=== PATIENT | male | born 1985 | race Caucasian/White ===

== ENCOUNTER 2017-01-13 06:14 | Inpatient (IN) | payer SELFPAY ==
[~2017-01-13] VITALS: Wt 117.2 kg
[2017-01-13] MEDS ORDERED: morphine 4 MG/ML VIAL IV STA (06:40)
[2017-01-13] MEDS ORDERED: ONDANSETRON 4 MG INJ IV STA (06:40)
[2017-01-13] MEDS ORDERED: SOD CHLORIDE 0.9% 1,000 ML IV STA (06:40)
[2017-01-13 07:15] LABS: ADD UMIC YES; UR ASCORBIC ACID 40 mg/dL (NEGATIVE); UR BACTERIA FEW /HPF (NONE SEEN); UR BILIRUBIN (Dip) NEGATIVE (NEGATIVE); UR BLOOD (Dip) NEGATIVE (NEGATIVE); UR CLARITY CLEAR (CLEAR); UR COLOR YELLOW (YELLOW); UR GLUCOSE (Dip) NEGATIVE (NEGATIVE); UR KETONES (Dip) TRACE mg/dL (NEGATIVE); UR LEUKOCYTE ESTERASE (Dip) NEGATIVE Leu/ul (NEGATIVE); UR NITRITE (Dip) NEGATIVE (NEGATIVE); UR RBC 0 /HPF (0-5); UR SPECIFIC GRAVITY (Dip) 1.014 (1.003-1.030); UR TOTAL PROTEIN (Dip) 1+ mg/dl (NEGATIVE); UR UROBILINOGEN (Dip) NEGATIVE (NEGATIVE)
[2017-01-13 07:17] LABS: BASOPHILS % 0.2 % (0.0-2.0); EOSINOPHILS % 0.2 % (0.0-7.0); HEMATOCRIT 45.2 % (42.0-52.0); HEMOGLOBIN 15.8 g/dl (14.0-18.0); LYMPHOCYTES # 1.2 10^3/ul (0.8-2.9); LYMPHOCYTES % 6.5 % (15.0-51.0); MEAN CORPUSCULAR HEMOGLOBIN 30.9 pg (29.0-33.0); MEAN CORPUSCULAR VOLUME 88.3 fl (82.0-101.0); MEAN PLATELET VOLUME 10.8 fl (7.4-10.4); MONOCYTES % 5.3 % (0.0-11.0); NEUTROPHIL # 15.6 10^3/ul (1.6-7.5); NEUTROPHILS % 87.4 % (39.0-77.0); PLATELET COUNT 292 10^3/UL (140-415); RED BLOOD COUNT 5.12 10^6/ul (4.70-6.10); RED CELL DISTRIBUTION WIDTH 12.2 % (11.5-14.5); WHITE BLOOD COUNT 17.9 10^3/ul (4.8-10.8)
[2017-01-13 07:38] LABS: ALBUMIN 4.7 g/dl (3.3-4.9); ALBUMIN/GLOBULIN RATIO 1.3; BILIRUBIN,INDIRECT 0.6 mg/dl (0-1.1); BILIRUBIN,TOTAL 0.6 mg/dl (0.2-1.3); CALCIUM 10.2 mg/dl (8.4-10.2); CREATININE 0.86 mg/dl (0.61-1.24); POTASSIUM 4.2 mmol/L (3.5-5.1); TOTAL PROTEIN 8.3 g/dl (6.1-8.1)
--- NOTE | 2017-01-13 07:56 | RADRPT ---
PROCEDURE: CT of the abdomen and pelvis without contrast CLINICAL INDICATION: Right lower quadrant pain. TECHNIQUE: Spiral CT images through the abdomen and pelvis without the use of oral and without the use of intravenous contrast. The administered radiation dose is CTDI 21.04 and DLP 1330.55. One or more of the following dose reduction techniques were used: automated exposure control, adjustment o f the mA and/or kV according to patient size, or use of iterative reconstruction technique. DICOM im ages are available. COMPARISON: None FINDINGS: The study is limited by lack of intravenous contrast. Lower thorax: Slight dependent atalectasis of the lung bases is seen.. Liver: The liver is unremarkable in appearance. Biliary: The gallbladder is unremarkable.. No biliary ductal dilatation is seen. Pancreas: Unremarkable. No focal mass or inflammatory process. Spleen: Slightly enlarged, measuring 15.1 cm in length. Adrenal glands: Unremarkable in appearance. No focal nodule.. Genitourinary: No hydronephrosis or renal calculi are seen.. The bladder is unremarkable in appearan ce.. Gastrointestinal Tract: The appendix is significantly dilated, measuring 1.9 cm in diameter. There i s marked wall thickening and dense material or appendicoliths within. There is significant periappen diceal fat stranding and a small of fluid in the right paracolic gutter. No free air or drainable ab scess is seen. Trace pelvic free fluid. The bowel is otherwise unremarkable in appearance. Lymph nodes: No adenopathy is seen... Vascular structures: Minimal vascular calcification.. Reproductive Organs: Unremarkable in appearance.. Musculoskeletal: No bony abnormality is seen.. IMPRESSION: Severe appendicitis with probable micro perforation but no definite free air or abscess.. RPTAT: HLBE Physician Lenny Date Time Electronically viewed and signed by Physician Lenny on 01/13/2017 07:56 EZIO/
[2017-01-13] MEDS ORDERED: PIPER-TAZO 3.375 GM IV (PMX) 50 ML IV ONE (08:30)
[2017-01-13] MEDS ORDERED: metroNIDAZOLE 500 MG/NS (PMX) 100 ML IVPB ONE (09:30)
[2017-01-13] MEDS ORDERED: ACETAMINOPHEN 325 MG TAB PO PRN (09:30)
[2017-01-13] MEDS ORDERED: ONDANSETRON 4 MG INJ IV PRN ×2 (09:30→23:00)
--- NOTE | 2017-01-13 09:56 | ERD ---
ER Documentation Chief Complaint Chief Complaint rlq pain w n/v HPI This 31-year-old male presents with abdominal pain since yesterday. It is mid abdominal migrating to the right lower quadrant. Denies fever chills. He says some nonbilious nonbloody vomiting. Denies diarrhea or urinary complaints. ROS All systems reviewed and are negative except as per history of present illness. Allergies Allergies: Coded Allergies: No Known Allergy (Unverified , 01/13/17) PMhx/Soc Medical and Surgical Hx: pt denies Medical Hx, pt denies Surgical Hx History of Surgery: No Hx Alcohol Use: No Hx Substance Use: Yes (Marijuana) Smoking Status: Never smoker Physical Exam Vitals Vital Signs Date Time Temp Pulse Resp B/P Pulse Ox O2 Delivery O2 Flow Rate FiO2 01/13/17 08:27 97.9 63 19 136/74 100 Room Air 01/13/17 06:27 97.0 80 20 160/95 98 Physical Exam Const: [] Alert, uncomfortable due to pain. Head: Atraumatic Eyes: Normal Conjunctiva ENT: Normal External Ears, Nose and Mouth. Neck: Full range of motion..~ No meningismus. Resp: Clear to auscultation bilaterally Cardio: Regular rate and rhythm, no murmurs Abd: Soft, tenderness with focal rebound in the right lower quadrant. non distended. Normal bowel sounds Skin: No petechiae or rashes Back: No midline or flank tenderness Ext: No cyanosis, or edema Neur: Awake and alert Psych: Normal Mood and Affect Result Diagram: 01/13/17 0656 01/13/17 0656 Results 24 hrs Laboratory Tests Test 01/13/17 06:51 01/13/17 06:56 Urine Color YELLOW Urine Clarity CLEAR Urine pH 7.0 Urine Specific [place] 1.014 Urine Ketones TRACEmg/dL Urine Nitrite NEGATIVEmg/dL Urine Bilirubin NEGATIVEmg/dL Urine Urobilinogen NEGATIVEmg/dL Urine Leukocyte Esterase NEGATIVELeu/ul Urine Microscopic RBC 0/HPF Urine Microscopic WBC 1/HPF Urine Bacteria FEW/HPF Urine Hemoglobin NEGATIVEmg/dL Urine Glucose NEGATIVEmg/dL Urine Total Protein 1+mg/dl White Blood Count 17.910^3/ul Red Blood Count 5.1210^6/ul Hemoglobin 15.8g/dl Hematocrit 45.2% Mean Corpuscular Volume 88.3fl Mean Corpuscular Hemoglobin 30.9pg Mean Corpuscular Hemoglobin Concent 35.0g/dl Red Cell Distribution Width 12.2% Platelet Count 21843^3/UL Mean Platelet Volume 10.8fl Neutrophils % 87.4% Lymphocytes % 6.5% Monocytes % 5.3% Eosinophils % 0.2% Basophils % 0.2% Nucleated Red Blood Cells % 0.0/100WBC Neutrophils # 15.610^3/ul Lymphocytes # 1.210^3/ul Monocytes # 1.010^3/ul Eosinophils # 0.010^3/ul Basophils # 0.010^3/ul Nucleated Red Blood Cells # 0.010^3/ul Sodium Level 141mmol/L Potassium Level 4.2mmol/L Chloride Level 101mmol/L Carbon Dioxide Level 26mmol/L Anion Gap 18 Blood Urea Nitrogen 15mg/dl Creatinine 0.86mg/dl Glucose Level 132mg/dl Calcium Level 10.2mg/dl Total Bilirubin 0.6mg/dl Direct Bilirubin 0.00mg/dl Indirect Bilirubin 0.6mg/dl Aspartate Amino Transf (AST/SGOT) 19IU/L Alanine Aminotransferase (ALT/SGPT) 35IU/L Alkaline Phosphatase 68IU/L Total Protein 8.3g/dl Albumin 4.7g/dl Globulin 3.60g/dl Albumin/Globulin Ratio 1.30 Lipase 48U/L Current Medications Medications (Trade) Dose Ordered Sig/Shlomo Route PRN Reason Start Time Stop Time Status Last Admin Dose Admin Sodium Chloride (NS) 1,000 ml @ 1,000 mls/hr Q1H STAT IV 01/13/17 06:40 01/13/17 07:39 DC 01/13/17 06:58 Morphine Sulfate (morphine) 4 mg ONCE STAT IV 01/13/17 06:40 01/13/17 06:41 DC 01/13/17 06:58 Ondansetron HCl 4 mg 4 mg ONCE STAT IV 01/13/17 06:40 01/13/17 06:41 DC 01/13/17 06:58 Piperacillin Sod/ Tazobactam Sod (Zosyn 3.375gm/ 50 ml (Pmx)) 50 ml @ 100 mls/hr ONCE ONCE IV 01/13/17 08:30 01/13/17 08:59 DC 01/13/17 08:17 Ondansetron HCl (Zofran Inj) 4 mg BRIDGE ORDER PRN IV NAUSEA AND/OR VOMITING 01/13/17 09:30 12 09:29 Acetaminophen 650 mg 650 mg ER BRIDGE PRN PO MILD PAIN/FEVER 01/13/17 09:30 12 09:29 Metronidazole 100 ml @ 100 mls/hr ONCE ONCE IVPB 01/13/17 09:30 01/13/17 10:29 DC 01/13/17 09:48 Piperacillin Sod/ Tazobactam Sod 50 ml @ 100 mls/hr Q6H IVPB 01/13/17 15:00 Sodium Chloride (NS) 1,000 ml @ 100 mls/hr Q10H IV 01/13/17 10:24 IV Flush (NS 3 ml) 3 ml PER PROTOCOL IV 01/13/17 10:30 Acetaminophen (Tylenol Supp) 650 mg Q6H PRN [place] PAIN LEVEL 1-3 OR FEVER 01/13/17 10:30 Morphine Sulfate (morphine) 2 mg Q4H PRN IV SEVERE PAIN LEVEL 7-10 01/13/17 10:30 Famotidine (Pepcid Iv) 20 mg Q12 IV 01/13/17 21:00 Procedures/MDM Patient shows signs and symptoms concerning for acute appendicitis. IV was obtained. Patient was given 1 L normal saline IV, morphine 4 mg IV and Zofran 4 mg's IV. CBC shows white blood cell count of 17.9 with left shift. CMP and lipase are normal. Urine is negative for blood, leukocytes, hemoglobin. CT abdomen pelvis noncontrast shows 1.9 cm appendix with stranding and fecalith. Concern is for microperforation although no obvious abscess noted. Patient was given Zosyn 3.37 g IV and Flagyl 500 mg IV. Call was placed to Dr. paz, general surgery who will graciously consult, patient was admitted n.p.o. with IV antibiotics. Patient stable without evidence of SIRS criteria throughout the ED course. Chest X-ray 1V Interpreted by me: Soft Tissue: No acute abnormalities Bones: No acute abnormalities Mediastinum/Cardiac Silhouette/Lungs: [No acute abnormalities]. Impression- normal 1 view chest x-ray Departure Diagnosis: Primary Impression: Appendicitis Appendicitis type: acute appendicitis Acute appendicitis type: with localized peritonitis Qualified Code: K35.3 - Acute appendicitis with localized peritonitis Condition: Stable ROMANA MONTES MD Jan 13, 2017 09:56
[2017-01-13] MEDS ORDERED: ACETAMINOPHEN 650 MG SUPP PR PRN (10:30)
[2017-01-13] MEDS ORDERED: NACL 0.9% 3 ML SYG IV SCH (10:30)
--- NOTE | 2017-01-13 10:46 | RADRPT ---
PROCEDURE: XR Chest. CLINICAL INDICATION: chest pain TECHNIQUE: Single frontal view of the chest was obtained COMPARISON: None FINDINGS: The heart and mediastinum are within normal limits. The lungs are clear. There is no pleural effusion or pneumothorax. RPTAT: AA IMPRESSION: No acute disease. .Francisco Javier Denney MD, Date Time Electronically viewed and signed by .Francisco Javier Denney MD, on 01/13/2017 10:46 .S/
--- NOTE | 2017-01-13 11:46 | CONS ---
Date/Time of Note Date/Time of Note DATE: 01/13/17 TIME: 11:33 Assessment/Plan Assessment/Plan Chief Complaint/Hosp Course 1. Appendicitis with appendicolith: CT abdomen: significantly dilated appendix with marked wall thickening and dense material or appendicoliths within and a probable microperforation -npo -ivf -abx -lap appendectomy -pain management 2. Abdominal pain: 2/2 #1 -as above 3. Leukocytosis: 2/2 #1 -as above 4. Obesity: bmi 32 -diet and exercise optimization -encourage weight loss 5. Hypertension history -monitor for need for medical management-bp optimization -weight management Thank you. Patient seen and examined in collaboration with Dr. Ray Daly. Problems: Consultation Date/Type/Reason Admit Date/Time Date of Consultation: Jan 13, 2017 Type of Consultation: surgical Reason for Consultation Appendicitis Referring Provider: ROMANA MONTES MD Hx of Present Illness Guillermo Oakley is a 31-year-old man who presents with complaints of abdominal pain since yesterday. Pain is described as sharp and constant, is mid abdominal migrating to the right lower quadrant. He denies and precipitating factors. He denies fevers but reports chills. Associated symptoms include nonbilious nonbloody vomiting. Denies diarrhea, dysuria, melena, hematochezia, change in bowel or bladder habits. CT abdomen shows significantly dilated appendix with marked wall thickening and dense material or appendicoliths within and a probable microperforation. General surgery was asked to evaluate. Constitutional: chills, No febrile Eyes: No visual change ENT: No congestion Respiratory: other (nasal congestion), No cough, No shortness of breath Cardiovascular: No chest pain, No lightheadedness, No palpitations Gastrointestinal: other (as above) Genitourinary: No dysuria, No flank pain Musculoskeletal: No back pain, No neck pain, No restricted range of motion Skin: No bruising, No erythema, No rash Neurologic: No confusion, No focal-weakness, No syncope Psychological: anxiety Past Medical History hypertension (controlled by diet and exercise) Obesity: bmi 32 Past Surgical History Past Surgical Hx: no surgical history Family History Significant Family History: no pertinent family hx Social History Smoking Status: Never smoker Exam/Review of Systems Vital Signs Vitals Vital Signs Date Time Temp Pulse Resp B/P Pulse Ox O2 Delivery O2 Flow Rate FiO2 01/13/17 08:27 97.9 63 19 136/74 100 Room Air Exam Constitutional: alert, oriented Psych: anxiety Head: atraumatic, normocephalic Eyes: nl lids, nl sclera ENMT: mucosa pink and moist, nl nasal mucosa & septum Neck: non-tender, supple Respiratory: clear to auscultation, normal air movement Cardiovascular: nl pulses, regular rate and rhythm Gastrointestinal: distended (min), soft, tender (rlq, mcburney's point, no rebound tenderness) Genitourinary - Male: nl penis, No CVA tenderness Musculoskeletal: nl extremities to inspection Neurological: nl mental status, nl speech, nl strength Skin: nl turgor, rash or lesions Results Result Diagram: 01/13/1765501/13/1756 Results 24 hrs Laboratory Tests Test 01/13/17 06:51 01/13/17 06:56 Urine Color YELLOW Urine Clarity CLEAR Urine pH 7.0 Urine Specific [place] 1.014 Urine Ketones TRACE A Urine Nitrite NEGATIVE Urine Bilirubin NEGATIVE Urine Urobilinogen NEGATIVE Urine Leukocyte Esterase NEGATIVE Urine Microscopic RBC 0 Urine Microscopic WBC 1 Urine Bacteria FEW A Urine Hemoglobin NEGATIVE Urine Glucose NEGATIVE Urine Total Protein 1+ H White Blood Count 17.9 H Red Blood Count 5.12 Hemoglobin 15.8 Hematocrit 45.2 Mean Corpuscular Volume 88.3 Mean Corpuscular Hemoglobin 30.9 Mean Corpuscular Hemoglobin Concent 35.0 Red Cell Distribution Width 12.2 Platelet Count 292 Mean Platelet Volume 10.8 H Neutrophils % 87.4 H Lymphocytes % 6.5 L Monocytes % 5.3 Eosinophils % 0.2 Basophils % 0.2 Nucleated Red Blood Cells % 0.0 Neutrophils # 15.6 H Lymphocytes # 1.2 Monocytes # 1.0 H Eosinophils # 0.0 Basophils # 0.0 Nucleated Red Blood Cells # 0.0 Sodium Level 141 Potassium Level 4.2 Chloride Level 101 Carbon Dioxide Level 26 Anion Gap 18 H Blood Urea Nitrogen 15 Creatinine 0.86 Glucose Level 132 Calcium Level 10.2 Total Bilirubin 0.6 Direct Bilirubin 0.00 Indirect Bilirubin 0.6 Aspartate Amino Transf (AST/SGOT) 19 Alanine Aminotransferase (ALT/SGPT) 35 Alkaline Phosphatase 68 Total Protein 8.3 H Albumin 4.7 Globulin 3.60 H Albumin/Globulin Ratio 1.30 Lipase 48 Medications Medications Current Medications Piperacillin Sod/ Tazobactam Sod 50 ml @ 100 mls/hr Q6H IVPB ; Start 01/13/17 at 15:00 Sodium Chloride (NS) 1,000 ml @ 100 mls/hr Q10H IV ; Start 01/13/17 at 10:24 Acetaminophen (Tylenol Supp) 650 mg Q6H PRN [place] PAIN LEVEL 1-3 OR FEVER; Start 01/13/17 at 10:30 Morphine Sulfate (morphine) 2 mg Q4H PRN IV SEVERE PAIN LEVEL 7-10; Start 01/13 at 10:30 Famotidine (Pepcid Iv) 20 mg Q12 IV ; Start 01/13/17 at 21:00 SAHIL GUIDRY NP Jan 13, 2017 11:43
--- NOTE | 2017-01-13 12:17 | HP ---
Date/Time of Note Date/Time of Note DATE: 01/13/17 TIME: 12:17 Assessment/Plan VTE Prophylaxis VTE Prophylaxis Intervention: SCD's Assessment/Plan Chief Complaint/Hosp Course 31-year-old male presenting to the emergency room with sudden onset of right- sided abdominal pain associated with nausea, who also found to have acute appendicitis. 1. Acute appendicitis with possible microperforation. Status: Acute -Admit as inpatient. Surgical consult with Dr. Daly requested. -IV fluids, broad-spectrum IV antibiotics, pain medications and PRN antiemetics. 2. Leukocytosis, secondary to #1. Status: Acute -Treatment as above. 3. Hypertension. Currently stable. Status: Chronic -This is being managed with diet and exercise as outpatient. Will closely monitor for medication management if indicated. - Please not that patient currently in pain which is also causing mild variation in his blood pressure. 4. Obesity. -Weight reduction advised. -We will also obtain an A1c and lipid panel. DVT prophylaxis: SCDs PUD prophylaxis: Pepcid. Rest of the management depend on hospital course. Approximately 60 minutes was spent on this history and physical. Patient was seen in collaboration with . Problems: HPI/ROS Admit Date/Time Admit Date/Time Hx of Present Illness This is a 31-year-old obese male with no significant past medical history other than recently diagnosed hypertension managed with diet and exercise, presented to the emergency room for evaluation of sudden onset of right-sided abdominal pain associated with nausea and subjective fevers. Initial workup showed acute appendicitis with possible microperforation. Patient also had elevated WBC 17, 900 on arrival. He also had a blood pressure of 160/95. Patient did not have any fevers in the emergency room. Patient was treated with IV Zosyn, IV fluids and Flagyl in the emergency room and a surgery consult was requested and admitted. ROS Patient continued to have right-sided abdominal pain. Currently patient denies any nausea, vomiting, hematochezia, hematemesis, melena, chest pain, palpitation , shortness of breath, numbness, tingling, dizziness, loss of consciousness or other constitutional symptoms. He also denied fever or chills. Eyes: No visual change ENT: No congestion Respiratory: other Cardiovascular: No chest pain, No lightheadedness, No palpitations Gastrointestinal: other Genitourinary: No dysuria, No flank pain Musculoskeletal: No back pain, No neck pain, No restricted range of motion Skin: No bruising, No erythema, No rash Neurologic: No confusion, No focal-weakness, No syncope Psychological: anxiety PMH/Family/Social Past Medical History See HPI Past Surgical History See HPI Past Surgical Hx: no surgical history Social History Patient denied history of alcohol or nicotine use. Patient smokes marijuana occasionally. Smoking Status: Never smoker Exam/Review of Systems Vital Signs Vitals Vital Signs Date Time Temp Pulse Resp B/P Pulse Ox O2 Delivery O2 Flow Rate FiO2 01/13/17 11:58 98.3 68 18 127/77 98 01/13/17 08:27 Room Air Exam Exam General: Well developed, obese male, not in any acute distress . HEENT: Normocephalic, Atraumatic, No laceration or hematoma; Eyes: PEERL, Conjunctiva clear, Anicteric sclera Neck: Supple without any lymphadenopathy, nontender, no JVD, no carotid bruits, trachea midline, no thyromegaly Cardiac: S1, S2 auscultated, regular rhythm and rate, no mumurs or gallop Pulmonary: Normal respiratory effort. Chest clear to auscultation bilaterally, no adventitious breath sounds GI: Tenderness to right lower quadrant. Abdomen normal to inspection. Soft, non - distended, no masses, no rebound tenderness or guarding. Bowel sounds active on all four quadrants Genitourinary: Deferred Extremities: No cyanosis, clubbing, or edema. Pulses [2+] bilaterally. Full ROM on all four extremities. No focal weakness appreciated. Neurologic: Alert to person, place, time, and situation. Affect appropriate, intact sensation. Skin: Clean,dry, and intact. No ecchymosis, no rashes, or lesions Labs Result Diagram: 01/13/1756 01/13/17655 Medications Medications Current Medications Piperacillin Sod/ Tazobactam Sod 50 ml @ 100 mls/hr Q6H IVPB ; Start 01/13/17 at 15:00 Sodium Chloride (NS) 1,000 ml @ 100 mls/hr Q10H IV ; Start 01/13/17 at 10:24 Acetaminophen (Tylenol Supp) 650 mg Q6H PRN [place] PAIN LEVEL 1-3 OR FEVER; Start 01/13/17 at 10:30 Morphine Sulfate (morphine) 2 mg Q4H PRN IV SEVERE PAIN LEVEL 7-10; Start 01/13 at 10:30 Famotidine (Pepcid Iv) 20 mg Q12 IV ; Start 01/13/17 at 21:00 TAMIR COPPOLA NP Jan 13, 2017 12:17
[2017-01-13] MEDS: SOD CHLORIDE 0.9% 1,000 ML IV SCH ×2 (12:32→17:05)
[2017-01-13 13:45] LABS: INR 0.87; PROTIME 11.9 Sec (11.9-14.9); PT RATIO 0.9
[2017-01-13 13:46] LABS: PARTIAL THROMBOPLASTIN TIME 31.8 Sec (25.0-35.0)
[2017-01-13 15:30] VITALS: TEMP 98.9
[2017-01-13] MEDS: PIPER-TAZO 3.375 GM IV (PMX) 50 ML IVPB SCH ×2 (15:38→21:57)
[2017-01-13 16:39] VITALS: BP 139/79; PULSE 73; RESP 16
[2017-01-13 20:00] VITALS: BP 142/76; RESP 20
[2017-01-13] MEDS: FAMOTIDINE 20 MG INJ IV SCH (21:00)
[2017-01-13] MEDS ORDERED: PROPOFOL 40 ML ONE (22:51)
[2017-01-13] MEDS ORDERED: MIDAZOLAM 1 MG/ML 2 ML INJ ONE (22:51)
[2017-01-13] MEDS ORDERED: ROPIVACAINE 0.5 % 30 ML VIAL ONE (22:51)
[2017-01-13] MEDS ORDERED: ROCURONIUM 50 MG INJ ONE (22:51)
[2017-01-13] MEDS ORDERED: BUPIVACAINE 0.25% (MPF) 30 ML INJ ONE (22:56)
[2017-01-13] MEDS ORDERED: LIDOCAINE 1%/EPI 30 ML INJ ONE (22:56)
[2017-01-13] MEDS ORDERED: LABETALOL HCL 20MG INJ IV PRN (23:00)
[2017-01-13] MEDS ORDERED: MEPERIDINE 25 MG INJ IV PRN (23:00)
[2017-01-13] MEDS ORDERED: FENTAnyl 50 MCG/ML VIAL IV PRN ×3 (23:00)
[2017-01-13] MEDS ORDERED: DIPHENHYDRAMINE 50 MG INJ IV PRN (23:00)
[2017-01-13] MEDS ORDERED: METOCLOPRAMIDE 10 MG INJ IV PRN (23:00)
[2017-01-13] MEDS ORDERED: hydrALAzine 20 MG INJ IV PRN (23:00)
[2017-01-13] MEDS ORDERED: EPHEDrine SULFATE 50 MG/5 ML SYG IV PRN (23:00)
[2017-01-13] MEDS ORDERED: HYDROmorphONE (0.2 MG/ML) 10ML SYG IV PRN ×3 (23:00)
[2017-01-14] VITALS (19 sets, daily range): BP systolic 123–171; BP diastolic 62–87; PULSE 69–78; RESP 15–20
[2017-01-14] MEDS ORDERED: LIDOCAINE 1%/EPI 30 ML INJ INJ ONE (00:11)
[2017-01-14] MEDS ORDERED: BUPIVACAINE 0.25% (MPF) 30 ML INJ INJ ONE (00:11)
[2017-01-14] MEDS ORDERED: LABETALOL HCL 20MG INJ ONE ×2 (00:16→00:23)
[2017-01-14] MEDS ORDERED: FENTAnyl 50 MCG/ML VIAL ONE ×2 (00:16→01:17)
[2017-01-14] MEDS ORDERED: ONDANSETRON 4 MG INJ ONE ×2 (00:26→14:49)
[2017-01-14] MEDS ORDERED: DEXAMETHASONE 4 MG/ML 1 ML INJ ONE (00:26)
[2017-01-14] MEDS ORDERED: METOCLOPRAMIDE 10 MG INJ ONE (00:26)
[2017-01-14] MEDS ORDERED: KETOROLAC 30 MG INJ ONE (00:26)
[2017-01-14] MEDS ORDERED: SUGAMMADEX SODIUM 200 MG/2 ML VIAL IV ONE (00:26)
[2017-01-14] MEDS ORDERED: hydrALAzine 20 MG INJ ONE (00:30)
[2017-01-14] MEDS ORDERED: THROMBIN 5000 UNIT VIAL ONE (00:33)
--- NOTE | 2017-01-14 01:18 | OPR ---
Date/Time of Note Date/Time of Note DATE: 01/14/17 TIME: 01:15 Operative Report Free Text/Dictation Preoperative Diagnosis 1. Acute appendicitis with perforation Postoperative Diagnosis 1. Acute appendicitis with contained retrocecal microperforation Operation Performed 1. Laparoscopic appendectomy 2. [place] anesthetic [place], [address] 3. Laparoscopic guided bilateral transversus abdominis plane block Surgeon: ROBLES PLUMMER MD Leacher: None Anesthesia: general (Plus local plus regional) Anesthesiologist: MD Kati Estimated Blood Loss: 30 ml's Specimens: Appendix Tubes/Drains/prosthetics: None Complications: None Pt Condition Post Procedure: stable Disposition: PACU Indications: Per consult note. Risks include but are not limited to bleeding, infection, abscess, seroma, leak , damage to intestines or any intra-abdominal/intrapelvic structures, hernia formation, chronic pain, need for re-operations or further surgeries, CA, stroke , PE, DVT, pneumonia, organ failures, or even . Procedure Note: Patient was brought into the operating room, placed supine on the operating table, SCDs were placed, left arm was tucked, all pressure points were well- padded, preoperative antibiotics administered, and after induction of anesthesia , he was prepped and draped in usual sterile fashion, and timeout was performed. Incision was made supraumbilically and the Veress needle was safely place into the abdomen. After negative sip test, abdomen was insufflated to 15 mmHg with CO2. At this point Veress was removed and the 5 mm blunt trocar was placed into the abdomen. Laparoscopy was performed and no injuries were identified using a 5 mm 30 scope. Under direct visualization another 5 mm port was placed and left lower quadrant and 12 mm port and suprapubic region avoiding the bladder. All incision sites were injected with quarter percent Marcaine with 1% lidocaine with epi. Bilateral transversus abdominis plane block was performed under laparoscopic visualization to aid with pain control intra-and postoperatively. Patient was placed in Trendelenburg and right side up. The appendix was found to be inflamed, retrocecal, with contained microperforation. The base was transected using Endo PHANI white load automatic 35 mm stapler just on the cecum. The xena were fired fully. The mesoappendix was transected with other white loads x2 stapler. Hemostasis was fully obtained. The appendix was placed in an Endo Catch bag and removed through the suprapubic port site. That fascia was closed with Endo Close and 0 Vicryl in a [id number] manner avoiding the bladder. Ports and CO2 were removed under direct visualization, wounds were fully irrigated, and skin was closed in subcuticular fashion using 4-0 Monocryl. Dermabond was applied. All counts were correct and the end of the operation 2. Patient was extubated and transferred to recovery room in stable condition. ROBLES PLUMMER MD Jan 14, 2017 01:18
[2017-01-14] MEDS: morphine 2 MG INJ IV PRN ×3 (02:19→18:51)
[2017-01-14] MEDS: PIPER-TAZO 3.375 GM IV (PMX) 50 ML IVPB SCH ×4 (03:20→21:40)
[2017-01-14] MEDS ORDERED: morphine 4 MG/ML VIAL IV ONE (04:09)
[2017-01-14] MEDS ORDERED: morphine 4 MG/ML VIAL IV PRN (04:30)
[2017-01-14 05:19] LABS: BASOPHILS % 0.1 % (0.0-2.0); HEMATOCRIT 41.1 % (42.0-52.0); HEMOGLOBIN 14.2 g/dl (14.0-18.0); LYMPHOCYTES # 0.8 10^3/ul (0.8-2.9); LYMPHOCYTES % 5.2 % (15.0-51.0); MEAN CORPUSCULAR HEMOGLOBIN 30.9 pg (29.0-33.0); MEAN CORPUSCULAR HGB CONC 34.5 g/dl (32.0-37.0); MEAN CORPUSCULAR VOLUME 89.5 fl (82.0-101.0); MEAN PLATELET VOLUME 10.8 fl (7.4-10.4); MONOCYTE # 0.4 10^3/ul (0.3-0.9); MONOCYTES % 2.9 % (0.0-11.0); NEUTROPHIL # 13.9 10^3/ul (1.6-7.5); NEUTROPHILS % 91.5 % (39.0-77.0); PLATELET COUNT 291 10^3/UL (140-415); RED BLOOD COUNT 4.59 10^6/ul (4.70-6.10); RED CELL DISTRIBUTION WIDTH 12.1 % (11.5-14.5); WHITE BLOOD COUNT 15.2 10^3/ul (4.8-10.8)
[2017-01-14 06:21] LABS: ALBUMIN 3.9 g/dl (3.3-4.9); ALBUMIN/GLOBULIN RATIO 1.25; BILIRUBIN,INDIRECT 0.6 mg/dl (0-1.1); BILIRUBIN,TOTAL 0.6 mg/dl (0.2-1.3); CALCIUM 9.2 mg/dl (8.4-10.2); CREATININE 0.8 mg/dl (0.61-1.24); MAGNESIUM 1.7 mg/dl (1.7-2.5); PHOSPHORUS 3.5 mg/dl (2.5-4.9); POTASSIUM 3.9 mmol/L (3.5-5.1)
[2017-01-14] MEDS: SOD CHLORIDE 0.9% 1,000 ML IV SCH ×3 (06:24→18:45)
[2017-01-14 06:45] LABS: THYROID STIMULATING HORMONE 1.35 MIU/L (0.465-4.680)
[2017-01-14] MEDS ORDERED: SUCCINYLCHOLINE CHLORIDE 100 MG/5 ML SYG IV ONE (07:00)
[2017-01-14] MEDS: FAMOTIDINE 20 MG INJ IV SCH ×2 (08:19→21:40)
--- NOTE | 2017-01-14 10:51 | PN ---
Date/Time of Note Date/Time of Note DATE: 01/14/17 TIME: 10:43 Assessment/Plan VTE Prophylaxis VTE Prophylaxis Intervention: SCD's Lines/Catheters IV C[facility]ter Type (from [facility]): Peripheral IV Urinary Cath still in place: No Assessment/Plan Chief Complaint/Hosp Course 31-year-old male presenting to the emergency room with sudden onset of right- sided abdominal pain associated with nausea, who also found to have acute appendicitis. 1. Acute appendicitis with perforation. Status post laparoscopic appendectomy 01/13/2017 Status: Acute -Continue broad-spectrum IV antibiotics, pain medications and PRN antiemetics. -Diet per surgery. -Encourage ambulation and incentive spirometry. 2. Leukocytosis, secondary to #1. Improving. Status: Acute -Treatment as above. 3. Hypertension. Currently stable. Status: Chronic -This is being managed with diet and exercise as outpatient. Will closely monitor for medication management if indicated. 4. Obesity. -Weight reduction advised. DVT prophylaxis: SCDs PUD prophylaxis: Pepcid. Patient was seen in collaboration with . Problems: Subjective 24 Hr Interval Summary Free Text/Dictation status post laparoscopic appendectomy. Having pain now. Remains afebrile. Exam/Review of Systems Vital Signs Vitals Vital Signs Date Time Temp Pulse Resp B/P Pulse Ox O2 Delivery O2 Flow Rate FiO2 01/14/17 07:47 97.8 65 20 154/85 99 01/14/17 04:00 Room Air Intake and Output 01/13/17 01/13/17 01/14/17 14:59 22:59 06:59 Intake Total 200 ml Output Total 30 ml Balance 170 ml Exam General: Well developed, obese male, not in any acute distress . HEENT: Normocephalic, Atraumatic, No laceration or hematoma; Eyes: PEERL, Conjunctiva clear, Anicteric sclera Neck: Supple without any lymphadenopathy, nontender, no JVD, no carotid bruits, trachea midline, no thyromegaly Cardiac: S1, S2 auscultated, regular rhythm and rate, no mumurs or gallop Pulmonary: Normal respiratory effort. Chest clear to auscultation bilaterally, no adventitious breath sounds GI: Tenderness to abdominal surgical incision area. Abdomen normal to inspection. Soft, non- distended, no masses, no rebound tenderness or guarding. Bowel sounds active on all four quadrants Genitourinary: Deferred Extremities: No cyanosis, clubbing, or edema. Pulses [2+] bilaterally. Full ROM on all four extremities. No focal weakness appreciated. Neurologic: Alert to person, place, time, and situation. Affect appropriate, intact sensation. Skin: Clean,dry, and intact. No ecchymosis, no rashes, or lesions Results Result Diagram: 01/14/17 0442 01/14/17 0442 Results 24 hrs Laboratory Tests Test 01/13/17 10:56 01/14/17 04:42 Prothrombin Time 11.9 Prothrombin Time Ratio 0.9 INR International Normalized Ratio 0.87 Activated Partial Thromboplast Time 31.8 White Blood Count 15.2 H Red Blood Count 4.59 L Hemoglobin 14.2 Hematocrit 41.1 L Mean Corpuscular Volume 89.5 Mean Corpuscular Hemoglobin 30.9 Mean Corpuscular Hemoglobin Concent 34.5 Red Cell Distribution Width 12.1 Platelet Count 291 Mean Platelet Volume 10.8 H Neutrophils % 91.5 H Lymphocytes % 5.2 L Monocytes % 2.9 Eosinophils % 0.0 Basophils % 0.1 Nucleated Red Blood Cells % 0.0 Neutrophils # 13.9 H Lymphocytes # 0.8 Monocytes # 0.4 Eosinophils # 0.0 Basophils # 0.0 Nucleated Red Blood Cells # 0.0 Sodium Level 138 Potassium Level 3.9 Chloride Level 103 Carbon Dioxide Level 25 Anion Gap 14 Blood Urea Nitrogen 12 Creatinine 0.80 Glucose Level 145 Hemoglobin A1c 5.1 Calcium Level 9.2 Phosphorus Level 3.5 Magnesium Level 1.7 Total Bilirubin 0.6 Direct Bilirubin 0.00 Indirect Bilirubin 0.6 Aspartate Amino Transf (AST/SGOT) 18 Alanine Aminotransferase (ALT/SGPT) 34 Alkaline Phosphatase 55 Total Protein 7.0 # Albumin 3.9 Globulin 3.10 Albumin/Globulin Ratio 1.25 Thyroid Stimulating Hormone (TSH) 1.350 Medications Medications Current Medications Piperacillin Sod/ Tazobactam Sod 50 ml @ 100 mls/hr Q6H IVPB Last administered on 01/14/17 08:19; Admin Dose 100 MLS/HR; Start 01/13/17 at 15:00 Sodium Chloride (NS) 1,000 ml @ 100 mls/hr Q10H IV Last administered on 07:32; Admin Dose 100 MLS/HR; Start 01/13/17 at 10:24 Acetaminophen (Tylenol Supp) 650 mg Q6H PRN CA PAIN LEVEL 1-3 OR FEVER; Start 01/13/17 at 10:30 Morphine Sulfate (morphine) 2 mg Q4H PRN IV SEVERE PAIN LEVEL 7-10 Last administered on 01/14/17 08:19; Admin Dose 2 MG; Start 01/13/17 at 10:30 Famotidine (Pepcid Iv) 20 mg Q12 IV Last administered on 01/14/17 08:19; Admin Dose 20 MG; Start 01/13/17 at 21:00 Morphine Sulfate (morphine) 4 mg Q4H PRN IV PAIN; Start 01/14/17 at 04:30 TAMIR COPPOLA NP Jan 14, 2017 10:51
--- NOTE | 2017-01-14 15:25 | PN ---
Date/Time of Note Date/Time of Note DATE: 01/14/17 TIME: 15:24 Assessment/Plan Lines/Catheters IV Catheter Type (from [facility]): Peripheral IV Montague in Place (from [facility]): No Assessment/Plan Chief Complaint/Hosp Course 1. Acute appendicitis with contained retrocecal microperforation: -IS -ambulate -ice pack to abdominal wall -diet as tolerated -cont abx 2. Abdominal pain: 2/2 #1 improved -as above 3. Leukocytosis: 2/2 #1improving -as above 4. Obesity: bmi 32 -diet and exercise optimization -encourage weight loss 5. Hypertension history -monitor for need for medical management-bp optimization -weight management Thank you. Patient seen and examined in collaboration with Dr. Ray Daly. Problems: Subjective 24 Hr Interval Summary Some nausea with 1 time vomiting, no improved. Leukocytosis improving. Ambulating. No fevers, chills, sob, congested cough, cp, palpitations, badillo, dizziness, n/v/d/dysuria. Exam/Review of Systems Vital Signs Vitals Vital Signs Date Time Temp Pulse Resp B/P Pulse Ox O2 Delivery O2 Flow Rate FiO2 01/14/17 14:47 98.1 95 20 97 01/14/17 04:00 Room Air Intake and Output 01/13/17 01/13/17 01/14/17 15:00 23:00 07:00 Intake Total 200 ml Output Total 30 ml Balance 170 ml Exam Free Text/Dictation Constitutional: alert, oriented Psych: anxiety Head: atraumatic, normocephalic Eyes: nl lids, nl sclera ENMT: mucosa pink and moist, nl nasal mucosa & septum Neck: non-tender, supple Respiratory: clear to auscultation, normal air movement Cardiovascular: nl pulses, regular rate and rhythm Gastrointestinal: distended (min), soft, min tender darnell-incisional, incision sites dry Genitourinary - Male: nl penis, No CVA tenderness Musculoskeletal: nl extremities to inspection Neurological: nl mental status, nl speech, nl strength Skin: nl turgor, rash or lesions Results Result Diagram: 01/14/17 0442 01/14/17 044 SAHIL GUIDRY NP Jan 14, 2017 15:24 SAHIL GUIDRY NP Jan 14, 2017 15:24
[2017-01-14] MEDS: HYDROCODONE/APAP (5/325) TAB PO PRN (19:46)
[2017-01-14] MEDS: KETOROLAC 15 MG INJ IV PRN (19:46)
[2017-01-15 02:50] VITALS: BP 156/99; RESP 18
[2017-01-15] MEDS: KETOROLAC 15 MG INJ IV PRN (02:51)
[2017-01-15] MEDS: HYDROCODONE/APAP (5/325) TAB PO PRN ×3 (02:51→13:34)
[2017-01-15] MEDS: PIPER-TAZO 3.375 GM IV (PMX) 50 ML IVPB SCH ×2 (03:30→08:36)
[2017-01-15] MEDS: SOD CHLORIDE 0.9% 1,000 ML IV SCH (04:40)
[2017-01-15 06:16] LABS: BASOPHILS % 0.2 % (0.0-2.0); EOSINOPHILS # 0.1 10^3/ul (0.0-0.5); EOSINOPHILS % 0.4 % (0.0-7.0); HEMATOCRIT 34.6 % (42.0-52.0); HEMOGLOBIN 11.9 g/dl (14.0-18.0); LYMPHOCYTES # 1.2 10^3/ul (0.8-2.9); LYMPHOCYTES % 9.7 % (15.0-51.0); MEAN CORPUSCULAR HEMOGLOBIN 31.4 pg (29.0-33.0); MEAN CORPUSCULAR HGB CONC 34.4 g/dl (32.0-37.0); MEAN CORPUSCULAR VOLUME 91.3 fl (82.0-101.0); MEAN PLATELET VOLUME 11.1 fl (7.4-10.4); MONOCYTE # 1.3 10^3/ul (0.3-0.9); MONOCYTES % 10.4 % (0.0-11.0); NEUTROPHIL # 9.7 10^3/ul (1.6-7.5); NEUTROPHILS % 78.9 % (39.0-77.0); PLATELET COUNT 274 10^3/UL (140-415); RED BLOOD COUNT 3.79 10^6/ul (4.70-6.10); RED CELL DISTRIBUTION WIDTH 12.4 % (11.5-14.5); WHITE BLOOD COUNT 12.3 10^3/ul (4.8-10.8)
[2017-01-15 07:03] LABS: ALBUMIN 3.9 g/dl (3.3-4.9); ALBUMIN/GLOBULIN RATIO 1.14; CALCIUM 9.3 mg/dl (8.4-10.2); CREATININE 0.94 mg/dl (0.61-1.24); POTASSIUM 3.7 mmol/L (3.5-5.1); TOTAL PROTEIN 7.3 g/dl (6.1-8.1)
[2017-01-15 08:19] VITALS: BP 154/80; PULSE 88; RESP 16
[2017-01-15] MEDS: FAMOTIDINE 20 MG INJ IV SCH (08:36)
--- NOTE | 2017-01-15 10:25 | PDOCDIS ---
Discharge Instructions CONDITION Patient Condition: Stable HOME CARE INSTRUCTIONS: Diet Instructions: Regular FOLLOW UP/APPOINTMENTS Follow-up Plan Follow-up with Dr. Daly in 1 week. [id number] [facility] [address] [place] [id number] Office 1.Follow up with primary care physician in 1 week If you don't have one please let someone know, we can give you resources that may help you pick one. You may also call your insurance company to assign one to you. Review your medication list with your nurse before leaving and if you need new prescriptions please let your nurse know. I may have made changes to your home medications or given you new prescriptions, please let your primary doctor know as well. Stay compliant with your medications and report any side effects to your PCP or pharmacist. Return to the ER if you have any concerns and cannot reach your doctors or call your insurance company, they usually have a nurse that can help you. 2. Call 911 or go to the nearest emergency room if experiencing loss of consciousness, dizziness, chest pain, shortness of breath, vomiting/abdominal pain, speech difficulties, motor weakness or any unusual symptoms. Other orders: Resume regular diet. Drink plenty of fluids. Take prescribed antibiotics. Post operative Instructions *Do not lift anything more than 25 pounds for 6 to 8 weeks *Do not swim or take hot tub bath for 2weeks *Remove dressing and May shower-Use mild soap around site and pat dry *If you notice any oozing, bleeding or other drainage or having fever or chills from site please contact Surgeon's office-If unable to get office, you may go to nearest emergency room TAMIR COPPOLA NP Jan 15, 2017 10:25
--- NOTE | 2017-01-15 10:26 | PN ---
Date/Time of Note Date/Time of Note DATE: 01/15/17 TIME: 10:13 Assessment/Plan Lines/Catheters IV C[facility] Type ([facility]): Peripheral IV Montague in Place (from [facility]): No Assessment/Plan Chief Complaint/Hosp Course 1. Acute appendicitis with contained retrocecal microperforation: -IS -ambulate -ice pack to abdominal wall -diet as tolerated -may be discharged per medical team with po abx. To follow in office in 1-2 weeks. 2. Abdominal pain: 2/2 #1 improved -as above 3. Leukocytosis: 2/2 #1improving -as above 4. Obesity: bmi 32 -diet and exercise optimization -encourage weight loss 5. Hypertension history -monitor for need for medical management-bp optimization -weight management Thank you. Patient seen and examined in collaboration with Dr. Ray Daly. Problems: Subjective 24 Hr Interval Summary Feels better. Nausea improved, no vomiting today. Leukocytosis improved. No fevers, chills, sob, congested cough, cp, palpitations, badillo, dizziness, n/v/d/ dysuria. Exam/Review of Systems Vital Signs Vitals Vital Signs Date Time Temp Pulse Resp B/P Pulse Ox O2 Delivery O2 Flow Rate FiO2 01/15/17 08:19 98.5 88 16 154/80 96 Room Air Intake and Output 01/14/17 01/14/17 01/15/17 15:00 23:00 07:00 Intake Total 100 ml 1790 ml 125 ml Balance 100 ml 1790 ml 125 ml Exam Free Text/Dictation Constitutional: alert, oriented Psych: anxiety Head: atraumatic, normocephalic Eyes: nl lids, nl sclera ENMT: mucosa pink and moist, nl nasal mucosa & septum Neck: non-tender, supple Respiratory: clear to auscultation, normal air movement Cardiovascular: nl pulses, regular rate and rhythm Gastrointestinal: distended (min), soft, min tender darnell-incisional, incision sites dry without erythema Genitourinary - Male: nl penis, No CVA tenderness Musculoskeletal: nl extremities to inspection Neurological: nl mental status, nl speech, nl strength Skin: nl turgor, rash or lesions Results Result Diagram: 01/15/17 0437 01/15/17 0437 SAHIL GUIDRY NP Jan 15, 2017 10:24
[2017-01-15] MEDS ORDERED: HYDR-906 PO (10:28)
[2017-01-15] MEDS ORDERED: AMOX1TAB10 PO (10:28)
--- NOTE | 2017-01-15 10:39 | DS ---
Date/Time of Note Date/Time of Note DATE: 01/15/17 TIME: 10:36 Discharge Summary Admission/Discharge Info Admit Date/Time Jan 13, 2017 at 09:14 Discharge Date/Time Discharge Diagnosis 1. Acute appendicitis with microperforation. Status post laparoscopic appendectomy 01/13/2017 2. Leukocytosis, secondary to #1. Improved 3. Hypertension. on diet and exercise management. 4. Obesity.Weight reduction advised. Patient Condition: Stable Consults Dr. Daly, surgery. Procedures Laparoscopic appendectomy 01/13/2017. Hospital Course This is a 31-year-old male presenting to the emergency room with sudden onset of right-sided abdominal pain associated with nausea, who also found to have Acute appendicitis with micro perforation. Patient had laparoscopic appendectomy 01/13/2017. Patient tolerated procedure well. Postoperatively, patient remained afebrile. Leukocytosis improved. Patient was tolerating diet. Blood pressure remained stable. He was educated on weight reduction for underlying obesity. At this time, he is feeling back to baseline. Vital signs and labs remain unremarkable. Patient is stable for outpatient surgery follow-up. Disposition: Home with outpatient surgery follow-up in 1 week. Patient was also recommended to continue antibiotics and pain medication upon discharge. Please not discharge instructions and patient verbalized instructions. Approximately 60 minutes was spent in coordinating the discharge on this patient. Patient is in collaboration with . Follow-up Plan Follow-up with Dr. Daly in 1 week. [id number] [facility] [address] [place] [id number] Office 1.Follow up with primary care physician in 1 week If you don't have one please let someone know, we can give you resources that may help you pick one. You may also call your insurance company to assign one to you. Review your medication list with your nurse before leaving and if you need new prescriptions please let your nurse know. I may have made changes to your home medications or given you new prescriptions, please let your primary doctor know as well. Stay compliant with your medications and report any side effects to your PCP or pharmacist. Return to the ER if you have any concerns and cannot reach your doctors or call your insurance company, they usually have a nurse that can help you. 2. Call 911 or go to the nearest emergency room if experiencing loss of consciousness, dizziness, chest pain, shortness of breath, vomiting/abdominal pain, speech difficulties, motor weakness or any unusual symptoms. Other orders: Resume regular diet. Drink plenty of fluids. Take prescribed antibiotics. Post operative Instructions *Do not lift anything more than 25 pounds for 6 to 8 weeks *Do not swim or take hot tub bath for 2weeks *Remove dressing and May shower-Use mild soap around site and pat dry *If you notice any oozing, bleeding or other drainage or having fever or chills from site please contact Surgeon's office-If unable to get office, you may go to nearest emergency room Primary Care Provider Care Physician No Primary Pending Labs Laboratory Tests Test 01/15/17 04:37 White Blood Count 12.310^3/ul (4.8-10.8) Red Blood Count 3.7910^6/ul (4.70-6.10) Hemoglobin 11.9g/dl (14.0-18.0) Hematocrit 34.6% (42.0-52.0) Mean Corpuscular Volume 91.3fl (82.0-101.0) Mean Corpuscular Hemoglobin 31.4pg (29.0-33.0) Mean Corpuscular Hemoglobin Concent 34.4g/dl (32.0-37.0) Red Cell Distribution Width 12.4% (11.5-14.5) Platelet Count 08306^3/UL (140-415) Mean Platelet Volume 11.1fl (7.4-10.4) Neutrophils % 78.9% (39.0-77.0) Lymphocytes % 9.7% (15.0-51.0) Monocytes % 10.4% (0.0-11.0) Eosinophils % 0.4% (0.0-7.0) Basophils % 0.2% (0.0-2.0) Nucleated Red Blood Cells % 0.0/100WBC (0.0-0.0) Neutrophils # 9.710^3/ul (1.6-7.5) Lymphocytes # 1.210^3/ul (0.8-2.9) Monocytes # 1.310^3/ul (0.3-0.9) Eosinophils # 0.110^3/ul (0.0-0.5) Basophils # 0.010^3/ul (0.0-0.1) Nucleated Red Blood Cells # 0.010^3/ul (0.0-0.0) Sodium Level 139mmol/L (135-144) Potassium Level 3.7mmol/L (3.5-5.1) Chloride Level 101mmol/L (97-110) Carbon Dioxide Level 26mmol/L (21-31) Anion Gap 16 (8-16) Blood Urea Nitrogen 12mg/dl (7-20) Creatinine 0.94mg/dl (0.61-1.24) Glucose Level 107mg/dl (70-220) Calcium Level 9.3mg/dl (8.4-10.2) Total Bilirubin 1.0mg/dl (0.2-1.3) Direct Bilirubin 0.00mg/dl (0.00-0.20) Indirect Bilirubin 1.0mg/dl (0-1.1) Aspartate Amino Transf (AST/SGOT) 20IU/L (15-46) Alanine Aminotransferase (ALT/SGPT) 38IU/L (13-69) Alkaline Phosphatase 46IU/L (42-121) Total Protein 7.3g/dl (6.1-8.1) Albumin 3.9g/dl (3.3-4.9) Globulin 3.40g/dl (1.3-3.2) Albumin/Globulin Ratio 1.14 TAMRI COPPOLA NP Jan 15, 2017 10:39
== END 2017-01-15 16:10 | disposition home or self-care (01) | DRG 340 ==
LOC: FTE 06:14 → MS1 09:14
PROVIDERS: ADMIT Family Medicine; ATTEND Family Medicine
PROC: 0DTJ4ZZ Resection of Appendix, Percutaneous Endoscopic Approach (ICD-10-PCS; principal; 2017-01-14)
DX: K35.3 Acute appendicitis with localized peritonitis (principal); I10 Essential (primary) hypertension; F12.90 Cannabis use, unspecified, uncomplicated; K38.1 Appendicular concretions; E66.9 Obesity, unspecified; Z68.32 Body mass index [BMI] 32.0-32.9, adult
CPT/HCPCS: 36415; 71010; 74176; 80053; 81001; 83036; 83690; 83735; 84100; 84443; 85025; 85610; 85730; 96365; 96375; J0360; J1100; J1885; J2250; J2270; J2405; J2543; J2765; J2795; J3010; J7030